=== PATIENT | male | born 1995 | race Caucasian/White ===

== ENCOUNTER 2019-05-13 03:38 | Emergency (ER) | payer OTHER ==
[~2019-05-13] VITALS: Ht 177.8 cm; Wt 70.3 kg
[2019-05-13] MEDS ORDERED: SUBOXONE 8 MG-1 EACH SL (03:41)
[2019-05-13] MEDS ORDERED: Bactroban Oint22 GM T (07:54)
== END 2019-05-13 04:30 | disposition home or self-care (01) ==
LOC: ED 03:38
DX: L72.3 Sebaceous cyst (principal); Z79.899 Other long term (current) drug therapy

== ENCOUNTER 2019-05-13 07:40 | Emergency (ER) | payer OTHER ==
[~2019-05-13] VITALS: Ht 180.3 cm; Wt 74.8 kg
[~2019-05-13 07:40] MED LIST: SUBOXONE 8 MG-1 EACH SL
[2019-05-13] MEDS ORDERED: Bactroban Oint22 GM T (07:54)
== END 2019-05-13 08:03 | disposition home or self-care (01) ==
LOC: ED 07:40
DX: L01.00 Impetigo, unspecified (principal); Z79.899 Other long term (current) drug therapy